=== PATIENT | male | born 1995 | race Hispanic/Latino ===

== ENCOUNTER 2021-02-12 22:06 | Emergency (ER) | payer OTHER ==
[~2021-02-12] VITALS: Ht 188 cm; Wt 104.3 kg
[2021-02-13 00:15] VITALS: BP 119/64
== END 2021-02-13 00:27 | disposition home or self-care (01) ==
LOC: EDH 22:06
DX: U07.1 COVID-19 (principal)
CPT/HCPCS: 87635; 87804 ×2; 99283; C9803

== ENCOUNTER 2021-05-01 08:51 | Emergency (ER) | payer OTHER ==
[~2021-05-01] VITALS: Ht 190.5 cm; Wt 108.9 kg
[2021-05-01] MEDS ORDERED: METH4TAB3 PO (09:16)
[2021-05-01] MEDS ORDERED: SOLU-MEDROL 40MG VIAL IJ SCH (09:30)
[2021-05-01 10:36] VITALS: BP 117/56
== END 2021-05-01 10:37 | disposition home or self-care (01) ==
LOC: EDH 08:51
DX: S70.362A Insect bite (nonvenomous), left thigh, initial encounter (principal); Z79.52 Long term (current) use of systemic steroids; W57.XXXA Bitten or stung by nonvenomous insect and other nonvenomous arthropods, initial encounter; Y93.89 Activity, other specified; Y92.89 Other specified places as the place of occurrence of the external cause; Y99.8 Other external cause status
CPT/HCPCS: 96372; 99283; J2920

== ENCOUNTER 2022-11-15 17:50 | Emergency (ER) | payer OTHER ==
[~2022-11-15] VITALS: Ht 188 cm; Wt 111.1 kg
[~2022-11-15 17:50] MED LIST: METH4TAB3 PO
[2022-11-15 18:15] LABS: APPEARANCE,URINE CLEAR (CLEAR); BILIRUBIN,URINE NEGATIVE (NEGATIVE); COLOR,URINE YELLOW (YELLOW); GLUCOSE, URINE (UA) NEGATIVE (NEGATIVE); KETONES,URINE NEGATIVE (NEGATIVE); LEUKOCYTE ESTERASE ,URINE NEGATIVE Leu/uL (NEGATIVE); NITRATE,URINE NEGATIVE (NEGATIVE); PROTEIN,URINE 10 mg/dL (NEGATIVE)
[2022-11-15 18:21] LABS: BACTERIA,URINE RARE /HPF (None Seen); MUCUS,URINE RARE LPF (None Seen)
[2022-11-15] MEDS ORDERED: CEFTRIAXONE 1G VIAL IM ONE (18:30)
[2022-11-15] MEDS ORDERED: AZITHROMYCIN 250 MG TABLET PO ONE (18:30)
[2022-11-15 19:42] VITALS: BP 129/74
== END 2022-11-15 20:01 | disposition home or self-care (01) ==
LOC: EDH 17:50
DX: A64 Unspecified sexually transmitted disease (principal); A74.9 Chlamydial infection, unspecified
CPT/HCPCS: 99283; 81001; 96372; J0696

== ENCOUNTER 2023-05-13 08:43 | Emergency (ER) | payer OTHER ==
[~2023-05-13] VITALS: Ht 190.5 cm; Wt 114.3 kg
[2023-05-13 09:52] LABS: RAPID GROUP A STREP negative (NEGATIVE)
[2023-05-13 09:54] LABS: SARS-CoV-2, RNA, NAAT NEGATIVE SARS CoV-2 (NEGATIVE)
[2023-05-13 10:01] LABS: INFLUENZA TYPE A Negative For Type A (NEGATIVE); INFLUENZA TYPE B Negative For Type B (NEGATIVE)
[2023-05-13 10:36] VITALS: BP 130/75; PULSE 75; RESP 20; O2SAT 98
== END 2023-05-13 10:37 | disposition home or self-care (01) ==
LOC: EDH 08:43
DX: J06.9 Acute upper respiratory infection, unspecified (principal); R51.9 Headache, unspecified; R09.81 Nasal congestion; Z20.822 Contact with and (suspected) exposure to COVID-19
CPT/HCPCS: 99283; 87635; 87880; 87804 ×2; C9803

== ENCOUNTER 2023-06-19 10:30 | Emergency (ER) | payer OTHER ==
[~2023-06-19] VITALS: Ht 190.5 cm; Wt 112.5 kg
[2023-06-19 12:42] VITALS: BP 133/78; PULSE 82; RESP 18; O2SAT 98
== END 2023-06-19 12:38 | disposition home or self-care (01) ==
LOC: EDH 10:30
DX: M79.652 Pain in left thigh (principal); M25.562 Pain in left knee; F17.200 Nicotine dependence, unspecified, uncomplicated
CPT/HCPCS: 99282

== ENCOUNTER 2023-11-15 07:18 | Emergency (ER) | payer OTHER ==
[~2023-11-15] VITALS: Ht 188 cm; Wt 111.6 kg
[2023-11-15] MEDS: IBUPROFEN 800 MG TAB PO ONE (08:20)
[2023-11-15 09:13] VITALS: BP 126/74; PULSE 68; RESP 16; O2SAT 98
== END 2023-11-15 09:13 | disposition home or self-care (01) ==
LOC: EDH 07:18
DX: S60.021A Contusion of right index finger without damage to nail, initial encounter (principal); F17.200 Nicotine dependence, unspecified, uncomplicated; W22.8XXA Striking against or struck by other objects, initial encounter; Y93.89 Activity, other specified; Y92.89 Other specified places as the place of occurrence of the external cause; Y99.8 Other external cause status
CPT/HCPCS: 73140